=== PATIENT | male | born 1990 | race Hispanic/Latino ===

== ENCOUNTER 2022-06-03 14:25 | Emergency (ER) | payer OTHER, SELFPAY ==
[2022-06-03] MEDS ORDERED: Lidocaine 1% w/Epinephrine 1:200K 30 ML VIAL ONE (15:09)
[2022-06-03] MEDS ORDERED: Ondansetron ODT 4 MG TAB ONE (15:09)
[2022-06-03] MEDS ORDERED: Morphine 10 MG/ML VIAL ONE (15:10)
== END 2022-06-03 16:11 | disposition home or self-care (01) ==
LOC: CSHERS 14:25
DX: K61.0 Anal abscess (principal)
CPT/HCPCS: 46050; 87070; 87077; 87186; 87205; 96372; J2270; Q0162